=== PATIENT | male | born 1990 | race Asian ===

== ENCOUNTER → 2017-06-01 | Outpatient (CLI) | payer OTHER ==
--- NOTE | 2017-06-01 08:35 | RADIOLOGY REPORT (SQ) ---
EXAM DESCRIPTION: U/S RETROPERITON (RENAL/AORTA); U/S LTD DUPLEX ART/OLVIN FLOW COMPLETED DATE/TIME: 06/01/2017 8:03 am REASON FOR STUDY: DEISI (I70.1) I70.1 ATHEROSCLEROSIS OF RENAL ARTERY COMPARISON: None. TECHNIQUE: Realtime and static grayscale images acquired. Selected color Doppler, velocities and spe ctral images recorded. LIMITATIONS: None. FINDINGS: RIGHT KIDNEY: RENAL ARTERY VELOCITIES: 107 cm/sec. Segmental artery velocity 40 cm/sec. RENAL VEIN: Color doppler flow present, patent. VELOCITY RATIO: 0.97. Normal waveforms. KIDNEY: 12 cm in length. There is mild diffuse increased cortical echogenicity without cortical th inning which could indicate medical renal disease. No hydronephrosis. No cysts, stones, or masses. LEFT KIDNEY: RENAL ARTERY VELOCITIES: 133 cm/sec. Segmental artery velocity 79 cm/sec. RENAL VEIN: Color doppler flow present, patent. VELOCITY RATIO: 1.2. Normal waveforms. KIDNEY: Left kidney is 11 cm in length. Mild diffuse increased cortical echogenicity without corti grecia thinning. No hydronephrosis, no cysts, stones, or masses. BLADDER: Normal. OTHER: No other significant finding. IMPRESSION: NO DOPPLER EVIDENCE OF HEMODYNAMICALLY SIGNIFICANT RENAL ARTERY STENOSIS. MILD INCREASED ECHOGENICITY OF THE RENAL PARENCHYMA WITHOUT CYSTS, STONES, MASSES, OR HYDRONEPHROSIS COMMENT: NORMAL RENAL ARTERY/AORTA VELOCITY RATIO IS LESS THAN OR EQUAL TO 3.5. TECHNICAL DOCUMENTATION: JOB ID: [id number] [employer]- All Rights Reserved Reading location - IP/workstation name: [email or web address]
--- NOTE | 2017-06-01 08:35 | RADIOLOGY REPORT (SQ) ---
EXAM DESCRIPTION: U/S RETROPERITON (RENAL/AORTA); U/S LTD DUPLEX ART/OLVIN FLOW COMPLETED DATE/TIME: 06/01/2017 8:03 am REASON FOR STUDY: DEISI (I70.1) I70.1 ATHEROSCLEROSIS OF RENAL ARTERY COMPARISON: None. TECHNIQUE: Realtime and static grayscale images acquired. Selected color Doppler, velocities and spe ctral images recorded. LIMITATIONS: None. FINDINGS: RIGHT KIDNEY: RENAL ARTERY VELOCITIES: 107 cm/sec. Segmental artery velocity 40 cm/sec. RENAL VEIN: Color doppler flow present, patent. VELOCITY RATIO: 0.97. Normal waveforms. KIDNEY: 12 cm in length. There is mild diffuse increased cortical echogenicity without cortical th inning which could indicate medical renal disease. No hydronephrosis. No cysts, stones, or masses. LEFT KIDNEY: RENAL ARTERY VELOCITIES: 133 cm/sec. Segmental artery velocity 79 cm/sec. RENAL VEIN: Color doppler flow present, patent. VELOCITY RATIO: 1.2. Normal waveforms. KIDNEY: Left kidney is 11 cm in length. Mild diffuse increased cortical echogenicity without corti grecia thinning. No hydronephrosis, no cysts, stones, or masses. BLADDER: Normal. OTHER: No other significant finding. IMPRESSION: NO DOPPLER EVIDENCE OF HEMODYNAMICALLY SIGNIFICANT RENAL ARTERY STENOSIS. MILD INCREASED ECHOGENICITY OF THE RENAL PARENCHYMA WITHOUT CYSTS, STONES, MASSES, OR HYDRONEPHROSIS COMMENT: NORMAL RENAL ARTERY/AORTA VELOCITY RATIO IS LESS THAN OR EQUAL TO 3.5. TECHNICAL DOCUMENTATION: JOB ID: [id number] [employer] All Rights Reserved Reading location - IP/workstation name: [email or web address]
== END ==
LOC: RAD 07:07
PROVIDERS: ATTEND Physician Assistant
DX: I70.1 Atherosclerosis of renal artery (principal)
CPT/HCPCS: 76770; 93976